=== PATIENT | female | born 1930 | race Caucasian/White ===

== ENCOUNTER 2017-10-18 16:05 | Emergency (ER) | payer OTHER, BC ==
[~2017-10-18] VITALS: Ht 165.1 cm; Wt 70.5 kg
[2017-10-18 19:26] LABS: HEMATOCRIT 39.3 % (36.0-46.0); HEMOGLOBIN 13.7 G/DL (11.9-15.5); MCH 34.9 PG (29.0-34.0); MCHC 34.9 G/DL (30.0-36.0); PLATELET COUNT 210 K/uL (156-360); RBC DIS.WIDTH-SD 48.3 % (39-53); RED BLOOD COUNT 3.93 M/uL (3.80-5.20); WHITE BLOOD COUNT 6.2 K/uL (4.1-10.2)
[2017-10-18 19:35] LABS: ALBUMIN 4.6 g/dL (3.2-4.8); CHLORIDE 101 mEq/L (99-109); POTASSIUM 4.7 mEq/L (3.7-5.4); SODIUM 142 mEq/L (136-147)
[2017-10-18 19:37] LABS: GLUCOSE 93 mg/dL (70-99); TOTAL PROTEIN 7.6 g/dL (6.4-8.3)
[2017-10-18 19:39] LABS: TOTAL BILIRUBIN 0.7 mg/dL (0.0-1.0)
[2017-10-18 19:40] LABS: SERUM ETHYL ALCOHOL 209 mg/dL
[2017-10-18 19:41] LABS: ALKALINE PHOSPHATASE 95 IU/L (3-129); CREATININE 1.2 mg/dL (0.6-1.3); GFR ESTIMATE (CALCULATED) 45 mL/min/
[2017-10-18 19:42] LABS: AST (GOT) 83 IU/L (2-34); UREA NITROGEN (BUN) 26 mg/dL (9-23)
[2017-10-18 19:44] LABS: ALT (GPT) 48 IU/L (3-49)
[2017-10-18 20:29] LABS: THYROTROPIN (TSH) 1.7 MIU/L (0.4-5.5)
[2017-10-18 22:12] LABS: APPEARANCE CLEAR ((CLEAR)); BILIRUBIN NEGATIVE; BLOOD NEGATIVE; COLOR YELLOW ((YELLOW)); GLUCOSE (STRIP) NEGATIVE; KETONES 5; LEUKOCYTES MODERATE; NITRITE NEGATIVE; PROTEIN (STRIP) NEGATIVE; SPECIFIC GRAVITY 1.006 (1.000-1.030); UROBILINOGEN 0.2 MG/DL (0.2-1.0)
[2017-10-18 22:26] LABS: AMPHETAMINE NEGATIVE (500 ng/mL); BACTERIA RARE /HPF; BARBITURATES NEGATIVE (200 ng/mL); BENZODIAZEPINES NEGATIVE (150 ng/mL); BUPRENORPHINE NEGATIVE (10 ng/mL); COCAINE NEGATIVE (150 ng/mL); EPITHELIAL CELLS RARE /HPF; HYALINE CASTS 0-5 /LPF; METHADONE NEGATIVE (200 ng/mL); METHAMPHETAMINE NEGATIVE (500 ng/mL); MUCUS TRACE /LPF; OPIATES (MORPHINE) NEGATIVE (100 ng/mL); OXYCODONE NEGATIVE (100 ng/mL); PHENCYCLIDINE NEGATIVE (25 ng/mL); PROPOXYPHENE NEGATIVE (300 ng/mL); RED BLOOD CELLS 0-5 /HPF (0-5); THC CANNABINOIDS NEGATIVE (50 ng/mL); TRICYCLIC ANTIDEPRESSANTS NEGATIVE (300 ng/mL)
[2017-10-19 01:12] VITALS: BP 141/70
== END 2017-10-19 01:13 | disposition home or self-care (01) ==
LOC: EME 16:05
PROVIDERS: Emergency Medicine
DX: F10.10 Alcohol abuse, uncomplicated (principal); Y90.7 Blood alcohol level of 200-239 mg/100 ml; F32.9 Major depressive disorder, single episode, unspecified; F43.29 Adjustment disorder with other symptoms; R94.31 Abnormal electrocardiogram [ECG] [EKG]
CPT/HCPCS: 80053; 81003; 84443; 85027; 90839; 93005; 99281; 99285; G0480